=== PATIENT | female | born 1985 | race Caucasian/White ===

== ENCOUNTER 2019-06-27 19:30 | Emergency (ER) | payer OTHER ==
[2019-06-27 20:40] LABS: Urine Blood TRACE (NEG); Urine Glucose NEGATIVE (NEG); Urine Protein NEGATIVE (NEG); Urine Specific Gravity >1.030 (1.005-1.030); Urine pH 6.5 (5.0-7.0)
[2019-06-27 20:53] LABS: Absolute Lymphocytes (CBC) 2.7 K/uL (0.7-4.9); Basophils % 0.4 % (0-1.3); Hematocrit 38.1 % (36.0-45.0); Lymphocytes % 36.3 % (15.3-44.8); MPV 7.6 fL (7.6-11.3); RBC Red Blood Cell Count 4.39 M/uL (3.86-4.86)
[2019-06-27 21:27] LABS: ALT/SGPT 15 U/L (12-78); AST/SGOT 13 U/L (15-37); Albumin 4.1 g/dL (3.4-5.0); Alkaline Phosphatase 79 U/L (45-117); BUN Blood Urea Nitrogen 12 mg/dL (7-18); Bicarbonate 28 mmol/L (21-32); Bilirubin Direct < 0.1 mg/dL (0-0.2); Bilirubin Total 0.3 mg/dL (0.2-1.0); Glucose Level 87 mg/dL (74-106); Lipase 112 U/L (73-393); Potassium 3.7 mmol/L (3.5-5.1); Protein, Total 7.7 g/dL (6.4-8.2); Sodium Level 141 mmol/L (136-145)
[2019-06-27] MEDS ORDERED: MORPHINE 2 MG/ML SYR ONE (21:44)
[2019-06-27] MEDS ORDERED: NA CHLORIDE 0.9% 500 ML ONE (21:45)
[2019-06-27] MEDS ORDERED: ONDANSETRON 4 MG/2 ML VIAL ONE (21:45)
--- NOTE | 2019-06-27 22:31 | RAD REPORT ---
EXAM DESCRIPTION: US - Abdomen Exam Limited - 06/27/2019 9:16 pm CLINICAL HISTORY: ABD PAIN COMPARISON: No comparisons FINDINGS: The gallbladder demonstrates no gallstones. No pericholecystic fluid or gallbladder wall t hickening. The common bile duct is normal measuring 3 mm. The liver demonstrates no findings of intrahepatic biliary dilatation. IMPRESSION: Unremarkable examination.
--- NOTE | 2019-06-27 23:15 | ER ---
Nurse's Notes [facility] Name: Roya Pace Age: 33 yrs Sex: Female : 1985 Arrival Date: 06/27/2019 Time: 19:34 Bed 25 Private MD: Diagnosis: Right upper quadrant pain Presentation: 06/27 19:46 Presenting complaint: Patient states: epigastric pain since 1230 increased after ak1 eating. pt c/o indigestion. pt stated with both pregnancies she had cholelithiasis and tonight feels like the same pain but worse. Transition of care: patient was not received from another setting of care. Onset of symptoms was June 27, 2019. Risk Assessment: Do you want to hurt yourself or someone else? Patient reports no desire to harm self or others. Initial Sepsis Screen: Does the patient meet any 2 criteria? No. Patient's initial sepsis screen is negative. Does the patient have a suspected source of infection? No. Patient's initial sepsis screen is negative. Care prior to arrival: None. 19:46 Method Of Arrival: Ambulatory ak1 19:46 Acuity: ELIZA 3 ak1 Triage Assessment: 19:48 General: Appears in no apparent distress. Behavior is calm, cooperative. Pain: ak1 Complains of pain in epigastric area and right upper quadrant. 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 - Social history:: Smoking status: Patient/guardian denies using tobacco. - Ebola Screening: : No symptoms or risks identified at this time. Screenin:45 Abuse screen: Denies threats or abuse. Denies injuries from another. Nutritional rv screening: No deficits noted. Tuberculosis screening: No symptoms or risk factors identified. Fall Risk None identified. Assessment: 20:44 General: Appears in no apparent distress. comfortable, Behavior is calm, cooperative. rv Pain: Complains of pain in abdomen. Neuro: Level of Consciousness is awake, alert, obeys commands, Oriented to person, place, time, situation. Cardiovascular: Patient's skin is warm and dry. Respiratory: Airway is patent. GI: Bowel sounds present X 4 quads. Abd is soft X 4 quads Abdomen is tender to palpation in right upper quadrant. : No signs and/or symptoms were reported regarding the genitourinary system. EENT: No signs and/or symptoms were reported regarding the EENT system. Derm: Skin is intact. Musculoskeletal: No signs and/or symptoms reported regarding the musculoskeletal system. Vital Signs: 19:45 BP 135 / 90; Pulse 69; Resp 16; Temp 97.2; Pulse Ox 100% on R/A; Weight 68.04 kg (R); ak1 Height 5 ft. 7 in. (170.18 cm) (R); Pain 8/10; 21:00 BP 120 / 78; Pulse 69; Resp 16; Pulse Ox 99% on R/A; rv 22:00 BP 119 / 67; Pulse 55; Resp 15; Pulse Ox 98% on R/A; rv 23:00 BP 125 / 74; Pulse 59; Resp 16; Pulse Ox 99% on R/A; rv 19:45 Body Mass Index 23.49 (68.04 kg, 170.18 cm) ak1 ED Course: 19:34 Patient arrived in ED. cf2 19:45 Arm band placed on Patient placed in waiting room, on a stretcher, Patient notified of ak1 wait time. Urine obtained. 19:48 Triage completed. ak1 20:21 Kevin Barnes, CONNER is Primary Nurse. rv 20:22 Haseeb Sun MD is Attending Physician. kdr 20:45 Patient has correct armband on for positive identification. Placed in gown. Bed in low rv position. Call light in reach. Side rails up X 1. Pulse ox on. NIBP on. 20:46 Inserted saline lock: 22 gauge in left antecubital area, using aseptic technique. Blood rv collected. 21:17 US Abdomen Limited In Process Unspecified. EDMS 21:17 Ultrasound completed. hr 23:15 Rasheed Dover MD is Referral Physician. gs 23:25 No provider procedures requiring assistance completed. IV discontinued, intact, rv bleeding controlled, No redness/swelling at site. Administered Medications: 21:51 Drug: morphine 2 mg {Note: RASS 0.} Route: IVP; Site: left antecubital; rv 23:23 Follow up: Response: No adverse reaction; Pain is decreased; RASS: Alert and Calm (0) rv 21:52 Drug: Zofran 4 mg Route: IVP; Site: left antecubital; rv 23:24 Follow up: Response: No adverse reaction rv 21:52 Drug: NS 0.9% 500 ml Route: IV; Rate: bolus; Site: left antecubital; rv 22:43 Follow up: IV Status: Completed infusion; IV Intake: 500ml rv 23:23 Drug: TORadol - Ketorolac 15 mg Route: IVP; Site: left antecubital; rv 23:24 Follow up: Response: Medication administered at discharge. rv Intake: 22:43 IV: 500ml; Total: 500ml. rv Outcome: 23:15 Discharge ordered by . 23:26 Discharged to home ambulatory. rv 23:26 Condition: improved 23:26 Discharge instructions given to patient, Instructed on discharge instructions, follow up and referral plans. Demonstrated understanding of instructions, follow-up care. 23:26 Patient left the ED. rv Signatures: Dispatcher [employer] EDMS Haseeb Sun MD MD kdr Rod, Haley hr Krenek, Amber RN RN ak1 Lencho Odom MD MD Kevin Barnes RN RN Kristen Armstrong 2
--- NOTE | 2019-06-27 23:16 | EDPHYS ---
Physician Documentation [facility] Name: Roya Pace Age: 33 yrs Sex: Female : 1985 Arrival Date: 06/27/2019 Time: 19:34 Bed 25 Private MD: ED Physician Haseeb Sun HPI: 06/27 20:44 This 33 yrs old Female presents to ER via Ambulatory with complaints of kdr Abdominal Pain. 20:44 The patient presents with abdominal pain in the right upper quadrant. Onset: The kdr symptoms/episode began/occurred suddenly, today, at 12:30. The symptoms do not radiate. Associated signs and symptoms: Pertinent positives: nausea and vomiting, Pertinent negatives: diarrhea, dysuria, fever, headache, hematuria, nausea, palpitations, shortness of breath, vaginal discharge, vomiting, vomiting blood. The symptoms are described as achy, constant, steady. Modifying factors: The symptoms are alleviated by nothing, the symptoms are aggravated by touching the area. Severity of pain: At its worst the pain was moderate in the emergency department the pain is unchanged. The patient has experienced similar episodes in the past, multiple times, but today's symptoms are worse. The patient has not recently seen a physician. 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 - Social history:: Smoking status: Patient/guardian denies using tobacco. - Ebola Screening: : No symptoms or risks identified at this time. ROS: 20:44 Constitutional: Negative for fever, chills, and weight loss, Eyes: Negative for injury, kdr pain, redness, and discharge, ENT: Negative for injury, pain, and discharge, Neck: Negative for injury, pain, and swelling, Cardiovascular: Negative for chest pain, palpitations, and edema, Respiratory: Negative for shortness of breath, cough, wheezing, and pleuritic chest pain, Back: Negative for injury and pain, : Negative for injury, bleeding, discharge, and swelling, MS/Extremity: Negative for injury and deformity, Skin: Negative for injury, rash, and discoloration, Neuro: Negative for headache, weakness, numbness, tingling, and seizure activity. Psych: Negative for depression, anxiety, suicide ideation, homicidal ideation, and hallucinations, Allergy/Immunology: Negative for hives, rash, and allergies, Endocrine: Negative for neck swelling, polydipsia, polyuria, polyphagia, and marked weight changes, Hematologic/Lymphatic: Negative for swollen nodes, abnormal bleeding, and unusual bruising. 20:44 Abdomen/GI: Positive for abdominal pain, nausea and vomiting, Negative for diarrhea, constipation, abdominal cramps, abdominal distension, black/tarry stool, rectal pain, rectal bleeding. Exam: 20:44 Constitutional: This is a well developed, well nourished patient who is awake, alert, kdr and in no acute distress. Head/Face: Normocephalic, atraumatic. Eyes: Pupils equal round and reactive to light, extra-ocular motions intact. Lids and lashes normal. Conjunctiva and sclera are non-icteric and not injected. Cornea within normal limits. Periorbital areas with no swelling, redness, or edema. Neck: Trachea midline, no thyromegaly or masses palpated, and no cervical lymphadenopathy. Supple, full range of motion without nuchal rigidity, or vertebral point tenderness. No Meningismus. Chest/axilla: Normal chest wall appearance and motion. Nontender with no deformity. No lesions are appreciated. Cardiovascular: Regular rate and rhythm with a normal S1 and S2. No gallops, murmurs, or rubs. Normal PMI, no JVD. No pulse deficits. Respiratory: Lungs have equal breath sounds bilaterally, clear to auscultation and percussion. No rales, rhonchi or wheezes noted. No increased work of breathing, no retractions or nasal flaring. Back: No spinal tenderness. No costovertebral tenderness. Full range of motion. Skin: Warm, dry with normal turgor. Normal color with no rashes, no lesions, and no evidence of cellulitis. MS/ Extremity: Pulses equal, no cyanosis. Neurovascular intact. Full, normal range of motion. Neuro: Awake and alert, GCS 15, oriented to person, place, time, and situation. Cranial nerves II-XII grossly intact. Motor strength 5/5 in all extremities. Sensory grossly intact. Cerebellar exam normal. Normal gait. Psych: Awake, alert, with orientation to person, place and time. Behavior, mood, and affect are within normal limits. 20:44 Abdomen/GI: Inspection: abdomen appears normal, Bowel sounds: active, all quadrants, Palpation: soft, mild abdominal tenderness, in the right upper quadrant. Vital Signs: 19:45 BP 135 / 90; Pulse 69; Resp 16; Temp 97.2; Pulse Ox 100% on R/A; Weight 68.04 kg (R); ak1 Height 5 ft. 7 in. (170.18 cm) (R); Pain 8/10; 21:00 BP 120 / 78; Pulse 69; Resp 16; Pulse Ox 99% on R/A; rv 22:00 BP 119 / 67; Pulse 55; Resp 15; Pulse Ox 98% on R/A; rv 23:00 BP 125 / 74; Pulse 59; Resp 16; Pulse Ox 99% on R/A; rv 19:45 Body Mass Index 23.49 (68.04 kg, 170.18 cm) ak1 MDM: 20:44 Data reviewed: vital signs, nurses notes, lab test result(s), radiologic studies. kdr Counseling: I had a detailed discussion with the patient and/or guardian regarding: the historical points, exam findings, and any diagnostic results supporting the discharge/admit diagnosis, lab results, radiology results. 23:14 ED course: pt seen and examined minimal ruq tenderness and right lower costal margin gs tenderness us negative given pt precautions will follow up as needed. 23:15 Patient medically screened. 06/27 20:23 Order name: Basic Metabolic Panel; Complete Time: 21:38 kdr 06/27 20:23 Order name: CBC with Diff; Complete Time: 21:24 kdr 06/27 20:23 Order name: Creatinine for Radiology; Complete Time: 21:24 kdr 06/27 20:23 Order name: Hepatic Function; Complete Time: 21:38 kdr 06/27 20:23 Order name: Lipase; Complete Time: 21:38 kdr 06/27 20:29 Order name: Urine Dipstick--Ancillary (enter results); Complete Time: 21:24 mw2 06/27 20:23 Order name: IV Saline Lock; Complete Time: 20:40 kdr 06/27 20:23 Order name: Labs collected and sent; Complete Time: 20:40 kdr 10/07 20:29 Order name: Urine --Ancillary (enter results); Complete Time: 21:24 mw2 06/27 20:44 Order name: US Abdomen Limited kdr Administered Medications: 21:51 Drug: morphine 2 mg {Note: RASS 0.} Route: IVP; Site: left antecubital; rv 23:23 Follow up: Response: No adverse reaction; Pain is decreased; RASS: Alert and Calm (0) rv 21:52 Drug: Zofran 4 mg Route: IVP; Site: left antecubital; rv 23:24 Follow up: Response: No adverse reaction rv 21:52 Drug: NS 0.9% 500 ml Route: IV; Rate: bolus; Site: left antecubital; rv 22:43 Follow up: IV Status: Completed infusion; IV Intake: 500ml rv 23:23 Drug: TORadol - Ketorolac 15 mg Route: IVP; Site: left antecubital; rv 23:24 Follow up: Response: Medication administered at discharge. rv Disposition: 06/27/19 23:15 Discharged to Home. Impression: Right upper quadrant pain. - Condition is Stable. - Discharge Instructions: Abdominal Pain, Adult. - Medication Reconciliation Form, Thank You Letter, Antibiotic Education, Prescription Opioid Use form. - Follow up: Rasheed Dover MD; When: 2 - 3 days; Reason: Re-evaluation by your physician. Signatures: Dispatcher [employer] EDMS Haseeb Sun MD MD kdr Krenek, Amber, RN RN ak1 Lencho Odom MD MD gs Vicente, Ronaldo RN RN rv Corrections: (The following items were deleted from the chart) 23:26 23:15 06/27/2019 23:15 Discharged to Home. Impression: Right upper quadrant pain. rv Condition is Stable. Forms are Medication Reconciliation Form, Thank You Letter, Antibiotic Education, Prescription Opioid Use. Follow up: Dr. Rasheed Dover; When: 2 - 3 days; Reason: Re-evaluation by your physician. gs
[2019-06-27] MEDS ORDERED: KETOROLAC 30 MG/ML INJ ONE (23:19)
[2019-06-28 00:39] VITALS: TEMP 97.2
[2019-06-28 00:44] VITALS: BP 125/74; O2SAT 99
== END 2019-06-27 23:26 | disposition home or self-care (01) ==
LOC: ER 19:30
DX: R10.11 Right upper quadrant pain (principal); F32.9 Major depressive disorder, single episode, unspecified
CPT/HCPCS: 96361; 85025; 80048; 36415; 81025; 80076; 81003; 83690; 76705; 96375; 96374; 99284; J2270; J7040; J2405

== ENCOUNTER 2024-01-27 11:06 | Emergency (ER) | payer OTHER ==
--- NOTE | 2024-01-27 12:30 | RAD REPORT ---
EXAM DESCRIPTION: RAD - Tib Fib Left - 01/27/2024 11:59 am CLINICAL HISTORY: PAIN COMPARISON: No comparisons FINDINGS/IMPRESSION: No acute fracture. No malalignment. No significant focal degenerative changes.
--- NOTE | 2024-01-27 12:37 | EDPHYS ---
Physician Documentation [facility] Name: Roya Pace Age: 38 yrs Sex: Female : 1985 Arrival Date: 01/27/2024 Time: 11:06 Bed 10 Private MD: ED Physician Saleem Raymundo HPI: 01/26 12:40 This 38 yrs old Female presents to ER via Wheelchair with complaints of Leg Injury. ms3 12:40 38-year-old female with no past medical history presents to the emergency department ms3 for left lower leg pain status post being kicked while playing a parents his soccer game on Thursday. She states her left leg aches and the pain is rated a 4/10 while at rest and increases to a 6/10 with walking. She denies any alleviating or inciting factors. 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 - Infectious Disease History:: Denies. - Social history:: Smoking status: Patient denies any tobacco usage or history of. ROS: 12:40 Constitutional: Negative for fever, and chills. Neck: Negative for injury, pain, and ms3 swelling, Cardiovascular: Negative for chest pain, and palpitations. Respiratory: Negative for shortness of breath, cough, wheezing, and pleuritic chest pain, Abdomen/GI: Negative for abdominal pain, nausea, vomiting, diarrhea, and constipation, 12:40 MS/extremity: Positive for Left leg pain, Exam: 12:41 Constitutional: This is a well developed, well nourished patient who is awake, alert, ms3 and in no acute distress. Head/Face: Normocephalic, atraumatic. Neck: Trachea midline, no cervical lymphadenopathy. Supple, full range of motion without nuchal rigidity, or vertebral point tenderness. No Meningismus. Chest/axilla: Normal chest wall appearance and motion. Nontender with no deformity. Cardiovascular: Regular rate and rhythm with a normal S1 and S2. No gallops, murmurs, or rubs. Normal PMI, no JVD. No pulse deficits. Respiratory: Lungs have equal breath sounds bilaterally, clear to auscultation and percussion. No rales, rhonchi or wheezes noted. No increased work of breathing, no retractions or nasal flaring. Abdomen/GI: Soft, non-tender, with normal bowel sounds. No distension or tympany. No guarding or rebound. No evidence of tenderness throughout. 12:41 Musculoskeletal/extremity: Extremities: noted in the left calf: contusion, pain, tenderness, Vital Signs: 11:23 BP 119 / 84; Pulse 81; Resp 16; Temp 98.4; Pulse Ox 100% on R/A; Weight 70.76 kg; iw Height 5 ft. 7 in. ; Pain 6/10; 12:47 BP 112 / 78; Pulse 78; Resp 18; Temp 98; Pulse Ox 99% on R/A; ph 11:23 Body Mass Index 24.43 (70.76 kg, 170.18 cm) iw 11:23 Pain Scale: Adult iw MDM: 11:31 Patient medically screened. ms3 12:41 Differential diagnosis: closed fracture, contusion. Data reviewed: vital signs, nurses ms3 notes, and as a result, I will discharge patient. Counseling: I had a detailed discussion with the patient and/or guardian regarding the historical points, exam findings, and any diagnostic results supporting the discharge/admit diagnosis, radiology results, the need for outpatient follow up, to return to the emergency department if symptoms worsen or persist or if there are any questions or concerns that arise at home. Special discussion: I discussed with the patient/guardian in detail that at this point there is no indication for admission to the hospital. It is understood, however, that if the symptoms persist or worsen the patient needs to return immediately for re-evaluation. 01/26 11:32 Order name: Tib Fib Left XRAY; Complete Time: 12:35 ms3 Administered Medications: No medications were administered Disposition Summary: 01/27/24 12:36 Discharge Ordered Notes: Location: Home ms3 Condition: Stable ms3 Diagnosis - Pain in left lower leg ms3 Followup: ms3 - With: Marco Antonio Brito, DO - When: 2 - 3 days - Reason: Re-evaluation by your physician Discharge Instructions: - Discharge Summary Sheet ms3 - Musculoskeletal Pain ms3 - Contusion, [id number] ms3 Forms: - Medication Reconciliation Form ms3 - Antibiotic Education ms3 - Prescription Opioid Use ms3 - Patient Portal Instructions ms3 - Leadership Thank You Letter ms3 Signatures: Dispatcher [employer] Zoie Beltran, RN RN Saleem Dolan DO DO ms3
--- NOTE | 2024-01-27 12:37 | ER ---
Nurse's Notes [facility] Name: Roya Pace Age: 38 yrs Sex: Female : 1985 Arrival Date: 01/27/2024 Time: 11:06 Bed 10 Private MD: Diagnosis: Pain in left lower leg Presentation: 01/26 11:23 Chief complaint: Patient states: on Thursday I kicked in the left calf while playing soccer, it's still hurting, feels like a dull ache. Coronavirus screen: At this time, the client does not indicate any symptoms associated with coronavirus-19. Ebola Screen: Patient negative for fever greater than or equal to 101.5 degrees Fahrenheit, and additional compatible Ebola Virus Disease symptoms Patient denies exposure to infectious person. Patient denies travel to an Ebola-affected area in the 21 days before illness onset. No symptoms or risks identified at this time. Initial Sepsis Screen: Does the patient meet any 2 criteria? No. Patient's initial sepsis screen is negative. Does the patient have a suspected source of infection? No. Patient's initial sepsis screen is negative. Risk Assessment: Do you want to hurt yourself or someone else? Patient reports no desire to harm self or others. 11:23 Method Of Arrival: Wheelchair iw 11:23 Acuity: ELIZA 4 iw 12:33 Onset of symptoms was January 27, 2024. 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 - Infectious Disease History:: Denies. - Social history:: Smoking status: Patient denies any tobacco usage or history of. Screenin:31 [facility] ED Fall Risk Assessment (Adult) History of falling in the last 3 months, ph including since admission No falls in past 3 months (0 pts) Confusion or Disorientation No (0 pts) Intoxicated or Sedated No (0 pts) Impaired Gait No (0 pts) Mobility Assist Device Used No (0 pt) Altered Elimination No (0 pt) Score/Fall Risk Level 0 - 2 = Low Risk Oriented to surroundings, Maintained a safe environment, Hourly rounding (assess needs \T\ fall precautionary measures) done. Abuse screen: Denies threats or abuse. Denies injuries from another. Nutritional screening: No deficits noted. Tuberculosis screening: No symptoms or risk factors identified. Assessment: 12:31 General: Appears in no apparent distress. Behavior is calm, cooperative. Pain: ph Complains of pain in left calf. Neuro: Level of Consciousness is awake, alert, obeys commands, Oriented to person, place, time, situation. Cardiovascular: Capillary refill < 3 seconds in bilateral fingers toes Patient's skin is warm and dry. Respiratory: Airway is patent Respiratory effort is even, unlabored. Musculoskeletal: Range of motion: intact in all extremities. Vital Signs: 11:23 BP 119 / 84; Pulse 81; Resp 16; Temp 98.4; Pulse Ox 100% on R/A; Weight 70.76 kg; iw Height 5 ft. 7 in. ; Pain 6/10; 12:47 BP 112 / 78; Pulse 78; Resp 18; Temp 98; Pulse Ox 99% on R/A; ph 11:23 Body Mass Index 24.43 (70.76 kg, 170.18 cm) iw 11:23 Pain Scale: Adult iw ED Course: 11:07 Patient arrived in ED. rg4 11:08 Saleem Raymundo DO is Attending Physician. ms3 11:24 Triage completed. iw 11:25 Arm band placed on. iw 11:49 Yulia Muhammad, RN is Primary Nurse. ph 12:01 Tib Fib Left XRAY In Process Unspecified. EDMS 12:33 Patient has correct armband on for positive identification. Bed in low position. Call ph light in reach. 12:33 No provider procedures requiring assistance completed. Patient did not have IV access ph during this emergency room visit. 12:36 Marco Antonio Brito DO is Referral Physician. ms3 Administered Medications: No medications were administered Medication: 12:32 VIS not applicable for this client. ph Outcome: 12:36 Discharge ordered by . ms3 12:48 Discharged to home ambulatory, ph 12:48 Condition: good 12:48 Discharge instructions given to patient, Instructed on discharge instructions, follow up and referral plans. Demonstrated understanding of instructions, follow-up care, 12:48 Patient left the ED. ph Signatures: Dispatcher [employer] EDMS Migue, Zoie, Yulia Redd RN, RN RN ph Garcia, Rubi rg4 Saleem Raymundo DO DO ms3
[2024-01-27 13:08] VITALS: BP 112/78; TEMP 98; O2SAT 99
== END 2024-01-27 12:48 | disposition home or self-care (01) ==
LOC: ER 11:06
DX: M79.662 Pain in left lower leg (principal)

== ENCOUNTER 2024-01-30 14:10 | Emergency (ER) | payer OTHER ==
[2024-01-30] MEDS ORDERED: NA CHLORIDE 0.9% 1,000 ML ONE (14:40)
[2024-01-30 14:55] LABS: Absolute Lymphocytes (CBC) 1.8 K/uL (0.7-4.9); Absolute Monocytes 0.4 K/uL (0.1-1.3); Basophils % 0.3 % (0-1.3); Eosinophils % 0.4 % (0-4.4); Hematocrit 35.5 % (36.0-45.0); Hemoglobin 11.8 g/dL (12.0-15.0); Lymphocytes % 24.3 % (15.3-44.8); MCHC 33.4 g/dL (32.0-36.0); MPV 7.1 fL (7.6-11.3); Monocytes % 5.5 % (3.3-12.3); Neutrophils % 69.5 % (41.7-73.7); Nucleated Red Blood Cells % 0.3 % (0-0); Platelets 212 thou/uL (152-406); RBC Red Blood Cell Count 4.22 M/uL (3.86-4.86); Red Cell Distribution Width 14.1 % (12.1-15.2)
[2024-01-30 15:08] LABS: Specific Gravity 1.024 (1.005-1.030); Sqamous Epithelial <5 /HPF (None Seen); Urine Bacteria None Seen /HPF (<20); Urine Bilirubin NEGATIVE (Negative); Urine Blood 1+ (Negative); Urine Clarity Clear (Clear); Urine Color Light-Yellow (Yellow); Urine Culture Reflex Order NOT NEEDED; Urine Glucose NEGATIVE (Negative); Urine Ketones NEGATIVE (Negative); Urine Microscopic Reflex YN ORDER UMIC; Urine Mucus Slight /HPF (None Seen); Urine Nitrite NEGATIVE (Negative); Urine Protein NEGATIVE (Negative); Urine RBC <5 /HPF (None Seen); Urine Urobilinogen Normal (Normal); Urine WBC None Seen /HPF (<5); Urine pH 5.5 (5.0-7.0)
[2024-01-30 15:09] LABS: ALT/SGPT 16 U/L (13-56); Alkaline Phosphatase 58 U/L (45-117); Anion Gap 5.3 mEq/L (5.0-15.0); BUN Blood Urea Nitrogen 8 mg/dL (7-18); Bicarbonate 28 mEq/L (21-32); Bilirubin Total 0.5 mg/dL (0.2-1.0); Creatine Phosphokinase 269 U/L (26-192); Globulin 3.9 g/dL (2.3-3.5); Glomerular Filtration Rate 102 ml/min (=/>90); Glucose Level 83 mg/dL (74-106); Potassium 3.3 mEq/L (3.5-5.1); Protein, Total 7.9 g/dL (6.4-8.2); Sodium Level 138 mEq/L (136-145)
[2024-01-30 15:11] LABS: AST/SGOT < 10 U/L (15-37)
--- NOTE | 2024-01-30 15:47 | RAD REPORT ---
EXAM DESCRIPTION: RAD - Tib Fib Left - 01/30/2024 3:39 pm CLINICAL HISTORY: PAIN COMPARISON: Tib Fib Left dated 01/27/2024 FINDINGS: No fracture or dislocation seen.
--- NOTE | 2024-01-30 16:08 | ER ---
Nurse's Notes [facility] Name: Roya Pace Age: 38 yrs Sex: Female : 1985 Arrival Date: 01/30/2024 Time: 14:10 Bed 5 Private MD: Diagnosis: Muscle weakness (generalized);Other malaise and fatigue Presentation: 01/29 14:25 Chief complaint: Patient states: Seen here for L leg injury Thursday. Now has weakness, ll1 fatigue, shaky, "ditzy" since yesterday. Coronavirus screen: Client denies travel out of the [place] in the last 14 days. At this time, the client does not indicate any symptoms associated with coronavirus-19. Ebola Screen: Patient denies travel to an Ebola-affected area in the 21 days before illness onset. Initial Sepsis Screen: Does the patient meet any 2 criteria? No. Patient's initial sepsis screen is negative. Does the patient have a suspected source of infection? No. Patient's initial sepsis screen is negative. Risk Assessment: Do you want to hurt yourself or someone else? Patient reports no desire to harm self or others. Onset of symptoms was January 25, 2024. 14:25 Method Of Arrival: Ambulatory ll1 14:25 Acuity: ELIZA 3 ll1 Triage Assessment: 14:25 General: Appears uncomfortable, Behavior is calm, cooperative, appropriate for age. ll1 Pain: Complains of pain in left leg Quality of pain is described as aching, throbbing. Neuro: Reports weakness "ditzy, not confused". Derm: Reports bruising L leg. Musculoskeletal: Reports pain in left leg. 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 - Infectious Disease History:: Denies. - Social history:: Smoking status: Patient denies any tobacco usage or history of. Screenin:46 [facility] ED Fall Risk Assessment (Adult) History of falling in the last 3 months, iw including since admission No falls in past 3 months (0 pts) Confusion or Disorientation No (0 pts) Intoxicated or Sedated No (0 pts) Impaired Gait No (0 pts) Mobility Assist Device Used No (0 pt) Altered Elimination No (0 pt) Score/Fall Risk Level 0 - 2 = Low Risk. Abuse screen: Denies threats or abuse. Denies injuries from another. Nutritional screening: No deficits noted. Tuberculosis screening: No symptoms or risk factors identified. Assessment: 14:46 General: Appears in no apparent distress. Behavior is calm, cooperative. General: iw Reports fatigue for 2-3 days. Pain: Complains of pain in left leg. Neuro: Level of Consciousness is awake, alert, obeys commands, Oriented to person, place, time, situation, Moves all extremities. Full function. Neuro: Reports weakness. Cardiovascular: Patient's skin is warm and dry. Respiratory: Airway is patent Respiratory effort is even, unlabored, Respiratory pattern is regular, symmetrical. GI: Abdomen is non-distended. Derm: Skin is intact, is healthy with good turgor. Musculoskeletal: Range of motion: intact in all extremities. Vital Signs: 14:25 BP 133 / 72; Pulse 84; Resp 17; Temp 97.7; Pulse Ox 100% ; Weight 70.76 kg; Height 5 ll1 ft. 7 in. ; Pain 5/10; 16:17 BP 150 / 63; Pulse 69; Resp 18 S; Pulse Ox 95% on R/A; as6 14:25 Body Mass Index 24.43 (70.76 kg, 170.18 cm) ll1 14:25 Pain Scale: Adult ll1 NIH Stroke Scale Scores: 14:25 NIHSS Score: 0 [facility] ED Course: 14:13 Patient arrived in ED. ts1 14:15 Maranda Welch FNP is PHCP. jh7 14:15 Suleman Gaston MD is Attending Physician. jh7 14:19 Arm band placed on Patient placed in an exam room, on a stretcher. ll1 14:28 Triage completed. ll1 14:33 Dwight Shell, CONNER is Primary Nurse. as6 14:47 Initial lab(s) drawn, by me, sent to lab. Inserted saline lock: 22 gauge in right iw antecubital area, using aseptic technique. Blood collected. 15:41 XRAY Tib Fib LEFT In Process Unspecified. EDMS 16:17 Bed in low position. Call light in reach. Side rails up X 1. Provided Education on: as6 follow up. 16:17 No provider procedures requiring assistance completed. IV discontinued, intact, as6 bleeding controlled, No redness/swelling at site. Pressure dressing applied. Administered Medications: 14:47 Drug: NS 0.9% IV 1000 ml IV at 1 bolus Per protocol; 1000 mL bolus Route: IV; Rate: 1 iw bolus; Site: right antecubital; 16:16 Follow up: Response: No adverse reaction; IV Status: Completed infusion; IV Intake: as6 1000ml Medication: 14:47 VIS not applicable for this client. iw Intake: 16:16 IV: 1000ml; Total: 1000ml. as6 Outcome: 16:08 Discharge ordered by . jh7 16:17 Discharged to home ambulatory, as6 16:17 Condition: stable 16:17 Discharge instructions given to patient, Instructed on discharge instructions, follow up and referral plans. Demonstrated understanding of instructions, follow-up care, 16:21 Patient left the ED. NIH Stroke Scale - NIH Stroke Score Date: 01/30/2024 Time: 14:25 Total Score = 0 10. Dysarthria (speech clarity - read or repeat words) - 0(Normal) 11. Extinction and Inattention (visual/tactile/auditory/spatial/personal) - 0(No abnormality) 1a. Level of Consciousness (LOC) - 0(Alert) 1b. Level of Consciousness (LOC) (Month \\T\\ Age) - 0(Both) 1c. LOC Commands (Open \\T\\ Closes Eyes/Vat Packer) - 0(Both) 2. Best Gaze (Lateral Gaze Paresis) - 0(Normal) 3. Visual Field Loss - 0(No visual loss) 4. Facial Palsy - 0(Normal) 5a. Left Arm: Motor (10-second hold) - 0(No drift) 5b. Right Arm: Motor (10-second hold) - 0(No drift) 6a. Left Leg: Motor (5-second hold - always test supine) - 0(No drift) 6b. Right Leg: Motor (5-second hold - always test supine) - 0(No drift) 7. Limb Ataxia (finger/nose \\T\\ heel/laird - test with eyes open) - 0(Absent) 8. Sensory Loss (pinprick arms/legs/face) - 0(Normal) 9. Best Language: Aphasia (description/naming/reading) - 0(No aphasia) Initials: jh7 Signatures: Dispatcher [employer] EDZoie Quijano, RN RN iw Mike Alanis RN RN 1 Dwight Shell, CONNER RN as6 Maranda Welch, PRODUCTION SUPPLY EQUIPMENT TENDER PRODUCTION SUPPLY EQUIPMENT TENDER jh7 Stefany Richardson, PAS PAS ts1 Corrections: (The following items were deleted from the chart) 14:25 Chief complaint: Patient states: Seen here for L leg injury Thursday. Now ll1 has weakness, fatigue, shaky, "ditzy" since ll1 14:25 Resp 17bpm; Temp 97.7F; Pain 5/10, Adult; ll1 1
--- NOTE | 2024-01-30 16:09 | EDPHYS ---
Physician Documentation [facility] Name: Roya Pace Age: 38 yrs Sex: Female : 1985 Arrival Date: 01/30/2024 Time: 14:10 Bed 5 Private MD: ED Physician Suleman Gaston HPI: 01/29 14:25 This 38 yrs old Female presents to ER via Ambulatory with complaints of General jh7 Weakness, fatigue, left leg pain. 14:25 Onset: The symptoms/episode began/occurred 5 day(s) ago. The patient was kicked on her jh7 left lower leg Thursday during a soccer game. She was seen here and told that she did not have a fracture. Since then she has become fatigued, feeling "dazed" or "ditzy". She is also concerned about new bruising where she was kicked in the leg and would like another x-ray. Her family member is concerned about rhabdomyolysis, but the patient denies any dark urine, abdominal pain, nausea, or vomiting. Denies headache, unilateral weakness, speech changes, chest pain, shortness of breath, syncope.. 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 - Infectious Disease History:: Denies. - Social history:: Smoking status: Patient denies any tobacco usage or history of. ROS: 14:25 Constitutional: Per HPI jh7 Exam: 14:25 Constitutional: This is a well developed, well nourished patient who is awake, alert, jh7 and in no acute distress. Head/Face: Normocephalic, atraumatic. Neck: Trachea midline, no thyromegaly or masses palpated, and no cervical lymphadenopathy. Supple, full range of motion without nuchal rigidity, or vertebral point tenderness. No Meningismus. Cardiovascular: Regular rate and rhythm with a normal S1 and S2. No gallops, murmurs, or rubs. Normal PMI, no JVD. No pulse deficits. Respiratory: Lungs have equal breath sounds bilaterally, clear to auscultation and percussion. No rales, rhonchi or wheezes noted. No increased work of breathing, no retractions or nasal flaring. Abdomen/GI: Soft, non-tender, with normal bowel sounds. No distension or tympany. No guarding or rebound. No evidence of tenderness throughout. Back: No spinal tenderness. No costovertebral tenderness. Full range of motion. Skin: Warm, dry with normal turgor. Normal color with no rashes, no lesions, and no evidence of cellulitis. MS/ Extremity: Pulses equal, no cyanosis. Neurovascular intact. Full, normal range of motion. Neuro: Awake and alert, GCS 15, oriented to person, place, time, and situation. Motor strength 5/5 in all extremities. Sensory grossly intact. Normal gait. Vital Signs: 14:25 BP 133 / 72; Pulse 84; Resp 17; Temp 97.7; Pulse Ox 100% ; Weight 70.76 kg; Height 5 ll1 ft. 7 in. ; Pain 5/10; 16:17 BP 150 / 63; Pulse 69; Resp 18 S; Pulse Ox 95% on R/A; as6 14:25 Body Mass Index 24.43 (70.76 kg, 170.18 cm) ll1 14:25 Pain Scale: Adult ll1 NIH Stroke Scale Scores: 14:25 NIHSS Score: 0 [facility] MDM: 14:15 Patient medically screened. [facility] 15:52 Differential diagnosis: Rhabdomyolysis, dehydration, generalized weakness, viral [facility] illness. Data reviewed: vital signs, nurses notes, lab test result(s), EKG, radiologic studies, plain films. I considered the following discharge prescriptions or medication management in the emergency department Medications were administered in the Emergency Department. See MAR. Independent interpretation of the following test(s) in the Emergency Department X-Ray: My interpretation is no acute finding. Counseling: I had a detailed discussion with the patient and/or guardian regarding the historical points, exam findings, and any diagnostic results supporting the discharge/admit diagnosis, to return to the emergency department if symptoms worsen or persist or if there are any questions or concerns that arise at home. 01/29 14:34 Order name: CBC with Diff; Complete Time: 15:13 [facility] 01/29 14:34 Order name: CMP; Complete Time: 15:13 [facility] 01/29 14:34 Order name: Urinalysis w/ reflexes; Complete Time: 15:13 [facility] 01/29 14:34 Order name: CK; Complete Time: 15:13 [facility] 01/29 15:19 Order name: SUSHMA Tib Fib LEFT; Complete Time: 15:50 [facility] 01/29 14:34 Order name: IV Saline Lock; Complete Time: 14:47 [facility] 01/29 14:34 Order name: Labs collected and sent; Complete Time: 14:47 [facility] 01/29 15:39 Order name: EKG - Nurse/Tech; Complete Time: 15:54 [facility] EC:49 Rate is 75 beats/min. Rhythm is regular. QRS [place] is Normal. [place] interval is normal at [facility] 162 msec. QRS interval is normal at 100 msec. QT interval is normal at 390 msec. No Q waves. T waves are Normal. No ST changes noted. Clinical impression: Normal ECG. Administered Medications: 14:47 Drug: NS 0.9% IV 1000 ml IV at 1 bolus Per protocol; 1000 mL bolus Route: IV; Rate: 1 iw bolus; Site: right antecubital; 16:16 Follow up: Response: No adverse reaction; IV Status: Completed infusion; IV Intake: as6 1000ml Disposition Summary: 01/30/24 16:08 Discharge Ordered Notes: Location: Home [facility] Problem: new [facility] Symptoms: are unchanged [facility] Condition: Stable [facility] Diagnosis - Muscle weakness (generalized) [facility] - Other malaise and fatigue [facility] Followup: [facility] - With: Private Physician - When: 2 - 3 days - Reason: Recheck today's complaints Discharge Instructions: - Discharge Summary Sheet [facility] - Weakness [facility] - Fatigue [facility] Forms: - Medication Reconciliation Form [facility] - Patient Portal Instructions [facility] - Leadership Thank You Letter [facility] NIH Stroke Scale - NIH Stroke Score Date: 01/30/2024 Time: 14:25 Total Score = 0 10. Dysarthria (speech clarity - read or repeat words) - 0(Normal) 11. Extinction and Inattention (visual/tactile/auditory/spatial/personal) - 0(No abnormality) 1a. Level of Consciousness (LOC) - 0(Alert) 1b. Level of Consciousness (LOC) (Month \\T\\ Age) - 0(Both) 1c. LOC Commands (Open \\T\\ Closes Eyes/Big Data Hadoop Developer) - 0(Both) 2. Best Gaze (Lateral Gaze Paresis) - 0(Normal) 3. Visual Field Loss - 0(No visual loss) 4. Facial Palsy - 0(Normal) 5a. Left Arm: Motor (10-second hold) - 0(No drift) 5b. Right Arm: Motor (10-second hold) - 0(No drift) 6a. Left Leg: Motor (5-second hold - always test supine) - 0(No drift) 6b. Right Leg: Motor (5-second hold - always test supine) - 0(No drift) 7. Limb Ataxia (finger/nose \\T\\ heel/laird - test with eyes open) - 0(Absent) 8. Sensory Loss (pinprick arms/legs/face) - 0(Normal) 9. Best Language: Aphasia (description/naming/reading) - 0(No aphasia) Initials: 7 Signatures: Dispatcher [employer] Zoie Beltran, Mike Clements RN, RN RN ll1 Maranda Welch, LEATHER CUTTER LEATHER CUTTER [facility] Dwight Shell RN as6
[2024-01-30 16:49] VITALS: BP 150/63; TEMP 97.7; O2SAT 95
--- NOTE | 2024-02-01 13:22 | EKG ---
Test Date: 2024-01-30 Test Time: 15:49:27 Psychologist: SONU MEASUREMENT RESULTS: Intervals: Rate: 75 CT: 162 QRSD: 100 QT: 390 QTc: 435 [place]: P: 79 CT: 162 QRS: 83 T: 77 INTERPRETIVE STATEMENTS: Normal sinus rhythm Normal ECG No previous ECG available for comparison Electronically Signed On 02-01-24 13:17:49 CDT by Alejandro Villeda
== END 2024-01-30 16:21 | disposition home or self-care (01) ==
LOC: ER 14:10
DX: M62.81 Muscle weakness (generalized) (principal); R53.83 Other fatigue; R53.81 Other malaise
CPT/HCPCS: 93005; 85025; 81001; 36415; 82550; 80053; 73590; 96360; 99284; J7030